=== PATIENT | female | born 1930 ===

== ENCOUNTER 2016-10-25 13:30 | Emergency (ER) | payer MEDICARE, MEDICAID ==
[2016-10-25 13:35] VITALS: BP 150/67; PULSE 93; RESP 16; TEMP 97.9; O2SAT 100
[2016-10-25] MEDS ORDERED: Sodium Chloride 0.9% 1,000 ML IV STA (14:38)
--- NOTE | 2016-10-25 14:39 | ED PDOC ---
HPI: Eye Injury/Pain Time Seen by Provider: 10/25/16 13:45 Chief Complaint (Nursing): Eye Problem Chief Complaint (Provider): Eye Problems History Per: Patient ([facility] for evaluation of "intermittent left eye pain since yesterday". Pt. admits history of high blood pressure seen at [facility] yesterday for the same complaint, labs and CT scan of Head was done, no findings.", per EMS.) Additional Complaint(s): Pt. is an 86 yo female, PMH of HTN and high Cholesterol, sent to ED [facility] for evaluation of "intermittent left eye pain since yesterday." Pt described more "Pain behind right eye," associated with lacrimation and intermittent nausea. Pt. states she was seen at [facility] yesterday for the same complaint, labs and CT scan of Head was done, no findings.", per EMS.Pt was sent to Opthomologoist, who she followed up with earlier today and reports that the eye doctor told her: "the eye is fine this is in your head you need to see a neurologist." Past Medical History Reviewed: Nursing Documentation, Vital Signs Vital Signs: Last Vital Signs Temp 97.9 F 10/25/16 13:31 Pulse 93 H 10/25/16 13:31 Resp 16 10/25/16 13:31 BP 150/67 10/25/16 13:31 Pulse Ox 100 10/25/16 13:31 - Medical History PMH: HTN, Hypercholesterolemia - Surgical History Surgical History: No Surg Hx - Family History Family History: States: No Known Family Hx - Living Arrangements Living Arrangements: [facility] - Social History Current smoker - smoking cessation education provided: No Alcohol: None Drugs: Denies - Home Medications Home Medications: Ambulatory Orders Medication Instructions Recorded Acetaminophen/Butalbital/Caf 1 tab PO Q4 #10 tab 10/25/16 [Fioricet] - Allergies Allergies/Adverse Reactions: Allergies Allergy/AdvReac Type Severity Reaction Status Date / Time No Known Allergies Allergy Verified 10/25/16 13:31 Review of Systems ROS Statement: Except As Marked, All Systems Reviewed And Found Negative Neurological: Positive for: Headache Physical Exam - Reviewed Nursing Documentation Reviewed: Yes Vital Signs Reviewed: Yes - Physical Exam Appears: Positive for: Well, Non-toxic, No Acute Distress Head Exam: Positive for: ATRAUMATIC, NORMAL INSPECTION, NORMOCEPHALIC Skin: Positive for: Normal Color, Warm, DRY Eye Exam: Positive for: Normal appearance, EOMI, PERRL, Other (left eye (+) lacrimation) ENT: Positive for: Normal ENT Inspection Neck: Positive for: Normal, Painless ROM Cardiovascular/Chest: Positive for: Regular Rate, Rhythm Respiratory: Positive for: CNT, Normal Breath Sounds Gastrointestinal/Abdominal: Positive for: Normal Exam, Bowel Sounds, Soft Back: Positive for: Normal Inspection Extremity: Positive for: Normal ROM Neurologic/Psych: Positive for: Alert, Oriented - Laboratory Results Result Diagrams: 10/25/16 14:50 10/25/16 17:00 - ECG O2 Sat by Pulse Oximetry: 100 Medical Decision Making Medical Decision Making: IV access established and diagnostics ordered treatment initiated with IVF, Reglan and Tylenol. 2 L 02 placed with NC as well. On re-eval, pt greatly improved. Happy and smiling, reports headache resolved. Labs discussed with Pt who demonstrated full understanding BUN 33 Cr 1.6 Pt denies any renal issues. Pt given wax ball molder to follow up with and strongly advised to do so. Return to ED with any concerns Disposition - Clinical Impression Clinical Impression: Migraine-cluster headache syndrome, Renal insufficiency - Patient ED Disposition Is Patient to be Admitted: No - Disposition Referrals: Puja Clifton MD [Staff Provider] - Eros Sotelo MD [Medical Doctor] - Disposition: Routine/Home Disposition Time: 16:00 Condition: STABLE Additional Instructions: Please follow up with the Kidney doctor like we spoke about! Prescriptions: Acetaminophen/Butalbital/Caf [Fioricet] 1 tab PO Q4 #10 tab Instructions: Cluster Headache (ED), Renal Failure Diet (DC) Forms: [employer] ([place]) - POA Present On Arrival: None
[2016-10-25 14:53] LABS: BASO # 0.1 K/uL (0.0-0.2); BASO % 0.7 % (0.0-2.0); EOS # 0.1 K/uL (0.0-0.7); EOS % 1.4 % (0.0-4.0); HEMATOCRIT 35.6 % (34.0-47.0); LYMPH # 1.6 K/uL (1.0-4.3); LYMPH % 17.5 % (20.0-40.0); MEAN CELL VOLUME 97.3 fl (81.0-99.0); MEAN CORPUSCULAR HEMOGLOBIN 31.8 pg (27.0-31.0); MEAN CORPUSCULAR HGB CONC 32.7 g/dL (33.0-37.0); MEAN PLATELET VOLUME 8.6 fl (7.2-11.7); MONO # 1.4 K/uL (0.0-0.8); MONO % 15.4 % (0.0-10.0); NEUT # 5.8 K/uL (1.8-7.0); RED CELL DISTRIBUTION WIDTH 14.4 % (11.5-14.5)
[2016-10-25 15:15] LABS: ALB/GLOB RATIO 1.2 (1.0-2.1); BILIRUBIN,TOTAL 0.7 mg/dl (0.2-1.3); CALCIUM 9.1 mg/dL (8.4-10.2); TOTAL PROTEIN 7.1 G/DL (6.3-8.2)
[2016-10-25 15:16] LABS: POTASSIUM 5.3 MMOL/L (3.6-5.0)
[2016-10-25 17:20] LABS: ALB/GLOB RATIO 1.2 (1.0-2.1); BILIRUBIN,TOTAL 0.7 mg/dl (0.2-1.3); CALCIUM 9.2 mg/dL (8.4-10.2); POTASSIUM 4.8 MMOL/L (3.6-5.0); TOTAL PROTEIN 7.6 G/DL (6.3-8.2)
== END 2016-10-25 18:22 | disposition home or self-care (01) ==
LOC: H.ER 13:30
DX: G44.009 Cluster headache syndrome, unspecified, not intractable (principal); N28.9 Disorder of kidney and ureter, unspecified
CPT/HCPCS: 80053; 85025; 96361; 96374; 99284; J2765; J7040